=== PATIENT | male | born 1965 | race Caucasian/White ===

== ENCOUNTER 2019-06-03 08:21 | Day surgery (SDC) | payer OTHER ==
[~2019-06-03] VITALS: Ht 182.9 cm; Wt 153.4 kg
[2019-06-03] MEDS ORDERED: NAPR500 PO (09:37)
--- NOTE | 2019-06-03 11:35 | NUR ---
06/03/19 1135 Barbara Adame PT IS IN RECLINER, DRINKING FLUIDS AND TALKING W/DAUGHTER, NO PAIN OR NAUSEA. HE IS READY TO GO HOME. VSS. WILL GO OVER DISCHARGE INSTRUCTIONS.
== END 2019-06-03 11:56 | disposition home or self-care (01) ==
LOC: ORSCSDS 08:21
PROVIDERS: Podiatrist Foot & Ankle Surgery
PROC: 0QSP04Z Reposition Left Metatarsal with Internal Fixation Device, Open Approach (ICD-10-PCS; principal; 2019-06-03 09:45)
DX: S92.351K Displaced fracture of fifth metatarsal bone, right foot, subsequent encounter for fracture with nonunion (principal); E66.01 Morbid (severe) obesity due to excess calories; Z68.42 Body mass index [BMI] 45.0-49.9, adult
CPT/HCPCS: A9270-GY; C1713; J0171; J0690; J1100; J1885; J2250; J2405; J2704; J3010; J7120